=== PATIENT | male | born 1990 ===

== ENCOUNTER → 2024-02-11 07:53 | Outpatient (CLI) | payer MEDICAID, SELFPAY ==
--- NOTE | 2024-02-11 22:55 | DI.NM.S_ITS ---
DATE OF SERVICE: 02/11/2024 PROCEDURE: Exercise stress test. INDICATIONS: Exertional shortness of breath. CARDIAC STRESS: The patient underwent exercise stress test under the supervision of an attending staff using standard Mesfin protocol. The patient walked on Mesfin protocol for 6 minutes and 30 seconds, achieved maximum heart rate of 158, which was 85% of target heart rate. Resting blood pressure 96/70 and peak blood pressure 115/80. Baseline rhythm is sinus. During stress, no convincing ischemic changes seen. No significant arrhythmias. The patient felt fatigue. No chest pain and had minimal shortness of breath. 7 METs of workload. EDITA positive 47%. CONCLUSION: Exercise stress test is negative for inducible ischemia. Diminished exercise tolerance. EDITA 47%. Normal hemodynamic response. No anginal symptoms. No significant arrhythmias. As far as stress test is concerned, low-risk stress test; however, significantly diminished exercise tolerance. Jamey Mendosa - [email or web address]/michael/EVGENY doc#: [id number]/job#: [id number] dd: 02/11/2024 17:00:00 dt: 02/11/2024 22:45:00 DICTATING /COPIES TO: Dodie Oliver MD COPIES MNE: YECENIA;
== END ==
PROVIDERS: Referring Provider Family Medicine; Visit Provider Family Medicine
DX: R06.00 Dyspnea, unspecified (principal)
CPT/HCPCS: 93017